=== PATIENT | female | born 1945 ===

== ENCOUNTER 2024-03-30 05:39 | Day surgery (SDC) | payer OTHER ==
[~2024-03-30 05:39] MED LIST: COZAAR25 MG PO; GLIPIZIDE XL2.5 MG PO; LIPITOR20 MG PO; METFORMIN HCL1000 M2 PO
[2024-03-30] MEDS ORDERED: CEFAZOLIN SODIUM 1,000 MG VIAL ONE (06:55)
== END 2024-03-30 08:00 | disposition home or self-care (01) ==
LOC: CIR.AMB 05:39
PROVIDERS: ATTEND Obstetrics & Gynecology Gynecology
DX: N81.11 Cystocele, midline (principal); Z53.09 Procedure and treatment not carried out because of other contraindication

== ENCOUNTER 2024-04-06 05:45 | Day surgery (SDC) | payer OTHER ==
[2024-04-06] MEDS ORDERED: CHLORHEXIDINE GLUCONATE 120 ML BOTTLE TOP ONE (12:08)
[2024-04-06] MEDS ORDERED: GENTAMICIN SULFATE 40 MG/ML VIAL ONE (12:08)
[2024-04-06] MEDS ORDERED: LIDOCAINE HCL 1%/EPINEPHRINE 20ML VIAL IJ ONE (12:09)
[2024-04-06] MEDS ORDERED: POVIDONE-IODINE 118 ML BOTT TOP ONE (12:09)
[2024-04-06] MEDS ORDERED: CEFAZOLIN SODIUM 1,000 MG VIAL ONE (12:12)
[2024-04-06] MEDS ORDERED: TRAM1TAB98 PO (14:34)
[2024-04-06] MEDS ORDERED: MACROBID 100 M100 MG PO (14:34)
== END 2024-04-06 17:40 | disposition home or self-care (01) ==
LOC: CIR.AMB 05:45
PROVIDERS: ATTEND Obstetrics & Gynecology Gynecology
DX: N81.11 Cystocele, midline (principal); N81.5 Vaginal enterocele; N81.6 Rectocele; I10 Essential (primary) hypertension; E11.9 Type 2 diabetes mellitus without complications